=== PATIENT | male | born 1945 | race Two or more races ===

== ENCOUNTER 2017-09-17 04:51 | Emergency (ER) | payer OTHER ==
[~2017-09-17] VITALS: Ht 177.8 cm; Wt 68.0 kg
[~2017-09-17 04:51] MED LIST: IRON SUPPLEMENT1 TAB PO; KETO10TA2 PO; LOTRISONE CREAM45 GM TP; MIRALAX12 EA PO; ORPH100T PO; POLY119PG PO; SURFAK240 M1 PO; ULTRACET PO; ULTRAM50 MG PO
[2017-09-17] MEDS ORDERED: LISINOPRIL-HCT1 EAC2 (05:08)
[2017-09-17] MEDS ORDERED: DOLOGESIC 500-1 EACH PO (08:17)
[2017-09-17] MEDS ORDERED: LEVSIN/SL0.125 MG SL (08:17)
== END 2017-09-17 08:41 | disposition home or self-care (01) ==
LOC: ER 04:51
DX: M54.2 Cervicalgia (principal); R10.32 Left lower quadrant pain; R10.31 Right lower quadrant pain

== ENCOUNTER 2017-12-27 10:04 | Outpatient (CLI) | payer OTHER ==
[~2017-12-27 10:04] MED LIST changes: +DOLOGESIC 500-1 EACH PO; +LEVSIN/SL0.125 MG SL; +LISINOPRIL-HCT1 EAC2
== END 2017-12-27 11:00 | disposition home or self-care (01) ==
LOC: NUCLEAR 10:04
DX: I20.1 Angina pectoris with documented spasm (principal)

== ENCOUNTER 2018-02-07 09:57 | Outpatient (CLI) | payer OTHER | END 2018-02-07 10:30 | disposition home or self-care (01) | LOC: NUCLEAR 09:57 | DX: I20.1 Angina pectoris with documented spasm (principal) | CPT/HCPCS: 78452; 93017; A9500 ==

== ENCOUNTER 2018-03-12 12:50 | Emergency (ER) | payer OTHER ==
[~2018-03-12] VITALS: Ht 175.3 cm; Wt 69.4 kg
== END 2018-03-12 14:23 | disposition home or self-care (01) ==
LOC: ER 12:50
DX: M54.2 Cervicalgia (principal)

== ENCOUNTER 2018-03-15 06:25 | Emergency (ER) | payer OTHER ==
[~2018-03-15] VITALS: Ht 175.3 cm; Wt 69.4 kg
== END 2018-03-15 11:10 | disposition home or self-care (01) ==
LOC: ER 06:25
DX: M54.2 Cervicalgia (principal)

== ENCOUNTER 2018-03-24 18:04 | Emergency (ER) | payer OTHER ==
[~2018-03-24] VITALS: Ht 175.3 cm; Wt 69.4 kg
== END 2018-03-24 21:29 | disposition home or self-care (01) ==
LOC: ER 18:04
DX: I10 Essential (primary) hypertension (principal); R51 Headache

== ENCOUNTER 2018-03-25 16:43 | Emergency (ER) | payer OTHER ==
[~2018-03-25] VITALS: Ht 175.3 cm; Wt 69.4 kg
== END 2018-03-25 21:19 | disposition home or self-care (01) ==
LOC: ER 16:43
DX: K29.60 Other gastritis without bleeding (principal); R51 Headache

== ENCOUNTER 2018-05-23 23:34 | Emergency (ER) | payer OTHER ==
[~2018-05-23] VITALS: Ht 175.3 cm; Wt 68.0 kg
== END 2018-05-24 14:47 | disposition home or self-care (01) ==
LOC: ER 23:34 → CPU-OBS 23:37 → ER 23:37
DX: I48.92 Unspecified atrial flutter (principal); I16.0 Hypertensive urgency; I10 Essential (primary) hypertension; R07.89 Other chest pain; M54.2 Cervicalgia; M62.838 Other muscle spasm

== ENCOUNTER 2018-05-28 00:55 | Emergency (ER) | payer OTHER ==
[~2018-05-28] VITALS: Ht 175.3 cm; Wt 68.0 kg
[2018-05-28] MEDS ORDERED: ASPIRIN EC81 MG (01:20)
[2018-05-28] MEDS ORDERED: ZANTAC 7575 MG (01:21)
[2018-05-28] MEDS ORDERED: KETO10TA2 PO (02:41)
[2018-05-28] MEDS ORDERED: SKELAXIN800 MG PO (02:41)
== END 2018-05-28 14:21 | disposition home or self-care (01) ==
LOC: ER 00:55
DX: M54.2 Cervicalgia (principal); M62.838 Other muscle spasm

== ENCOUNTER 2018-06-01 20:23 | Emergency (ER) | payer OTHER ==
[~2018-06-01] VITALS: Ht 175.3 cm; Wt 68.0 kg
[~2018-06-01 20:23] MED LIST changes: +ASPIRIN EC81 MG; +SKELAXIN800 MG PO; +ZANTAC 7575 MG
== END 2018-06-01 22:41 | disposition home or self-care (01) ==
LOC: ER 20:23
DX: K29.70 Gastritis, unspecified, without bleeding (principal)

== ENCOUNTER 2018-06-14 18:31 | Emergency (ER) | payer OTHER ==
[~2018-06-14] VITALS: Ht 162.6 cm; Wt 68.0 kg
[2018-06-14] MEDS ORDERED: PROTONIX40 MG (18:50)
[2018-06-14] MEDS ORDERED: PNEU16DI2 (18:51)
[2018-06-14] MEDS ORDERED: TOPROL XL25 MG (18:51)
== END 2018-06-15 13:22 | disposition home or self-care (01) ==
LOC: ER 18:31 → CPU-OBS 18:33 → ER 06-15 13:22
DX: R07.89 Other chest pain (principal); R10.13 Epigastric pain; R20.8 Other disturbances of skin sensation; R00.1 Bradycardia, unspecified; I16.0 Hypertensive urgency; I10 Essential (primary) hypertension

== ENCOUNTER 2018-07-16 06:53 | Emergency (ER) | payer OTHER ==
[~2018-07-16] VITALS: Ht 175.3 cm; Wt 68.0 kg
[~2018-07-16 06:53] MED LIST changes: +PNEU16DI2; +PROTONIX40 MG; +TOPROL XL25 MG
[2018-07-16] MEDS ORDERED: LISINOPRIL10 MG PO (07:28)
== END 2018-07-16 11:35 | disposition home or self-care (01) ==
LOC: ER 06:53
DX: I16.0 Hypertensive urgency (principal); I10 Essential (primary) hypertension

== ENCOUNTER → 2019-07-16 | Outpatient (CLI) | payer OTHER ==
[~2019-07-16] MED LIST changes: +LISINOPRIL10 MG PO
== END | disposition home or self-care (01) ==
LOC: TOM 09:15
DX: C61 Malignant neoplasm of prostate (principal)
CPT/HCPCS: 74178; Q9965

== ENCOUNTER 2019-07-29 07:56 | Outpatient (CLI) | payer OTHER | END 2019-07-29 08:07 | disposition home or self-care (01) | LOC: NUCLEAR 07:56 | DX: C61 Malignant neoplasm of prostate (principal) | CPT/HCPCS: 78306; 78320; A9503 ==

== ENCOUNTER 2019-11-04 08:40 | Emergency (ER) | payer OTHER ==
[~2019-11-04] VITALS: Ht 177.8 cm; Wt 68.0 kg
[2019-11-04] MEDS ORDERED: PEPCID AC20 MG (09:32)
== END 2019-11-04 12:36 | disposition home or self-care (01) ==
LOC: ER 08:40 → CPU-OBS 09:02 → ER 12:36
DX: R07.89 Other chest pain (principal); R55 Syncope and collapse

== ENCOUNTER 2020-05-14 14:52 | Emergency (ER) | payer OTHER ==
[~2020-05-14] VITALS: Ht 177.8 cm; Wt 64.0 kg
[~2020-05-14 14:52] MED LIST changes: +PEPCID AC20 MG
[2020-05-14] MEDS ORDERED: LIPITOR40 M1 (15:14)
[2020-05-14] MEDS ORDERED: COZAAR100 MG (15:14)
[2020-05-14] MEDS ORDERED: IRON325 MG (15:15)
== END 2020-05-14 18:52 | disposition home or self-care (01) ==
LOC: ER 14:52
DX: R42 Dizziness and giddiness (principal)

== ENCOUNTER 2020-12-28 01:43 | Emergency (ER) | payer OTHER ==
[~2020-12-28] VITALS: Ht 177.8 cm; Wt 68.0 kg
[~2020-12-28 01:43] MED LIST changes: +COZAAR100 MG; +IRON325 MG; +LIPITOR40 M1
[2020-12-28] MEDS ORDERED: RAYOS5 MG PO (01:59)
[2020-12-28] MEDS ORDERED: PANTOPRAZOLE SO40 MG PO (02:00)
[2020-12-28] MEDS ORDERED: ELIQUIS5 MG PO (02:00)
[2020-12-28] MEDS ORDERED: TAMSULOSIN HCL0.4 MG PO (02:00)
== END 2020-12-28 04:59 | disposition home or self-care (01) ==
LOC: ER 01:43
DX: I16.0 Hypertensive urgency (principal); I10 Essential (primary) hypertension

== ENCOUNTER 2021-04-18 07:48 | Emergency (ER) | payer OTHER ==
[~2021-04-18] VITALS: Ht 177.8 cm; Wt 68.0 kg
[~2021-04-18 07:48] MED LIST changes: +ELIQUIS5 MG PO; +PANTOPRAZOLE SO40 MG PO; +RAYOS5 MG PO; +TAMSULOSIN HCL0.4 MG PO
== END 2021-04-18 18:57 | disposition home or self-care (01) ==
LOC: ER 07:48 → CPU-OBS 07:50 → ER 07:50
DX: R07.89 Other chest pain (principal); Z11.52 Encounter for screening for COVID-19

== ENCOUNTER 2021-05-17 10:30 | Outpatient (CLI) | payer OTHER | END 2021-05-17 10:45 | disposition home or self-care (01) | LOC: PPH VACUNA 10:30 | PROVIDERS: ATTEND Emergency Medicine Pediatric Emergency Medicine | DX: Z23 Encounter for immunization (principal) ==

== ENCOUNTER → 2021-06-07 | Outpatient (CLI) | payer OTHER | END | disposition home or self-care (01) | LOC: PPH VACUNA 07:00 | PROVIDERS: ATTEND Emergency Medicine Pediatric Emergency Medicine | DX: Z23 Encounter for immunization (principal) ==

== ENCOUNTER 2021-12-06 08:15 | Outpatient (CLI) | payer OTHER | END 2021-12-06 08:30 | disposition home or self-care (01) | LOC: PPH VACUNA 08:15 | PROVIDERS: ATTEND Emergency Medicine Pediatric Emergency Medicine | DX: Z23 Encounter for immunization (principal) ==

== ENCOUNTER 2022-06-03 12:41 | Emergency (ER) | payer OTHER ==
[~2022-06-03] VITALS: Ht 175.3 cm; Wt 65.8 kg
[2022-06-03] MEDS ORDERED: ELIQUIS2.5 MG (12:59)
[2022-06-03] MEDS ORDERED: PROTONIX40 MG (12:59)
[2022-06-03] MEDS ORDERED: FOLIC ACID1 MG (13:00)
[2022-06-03] MEDS ORDERED: PEPCID AC20 MG (13:00)
== END 2022-06-03 14:58 ==
LOC: ER 12:41
DX: J06.9 Acute upper respiratory infection, unspecified (principal); I10 Essential (primary) hypertension; Z85.46 Personal history of malignant neoplasm of prostate

== ENCOUNTER 2022-06-18 07:59 | Emergency (ER) | payer OTHER ==
[~2022-06-18] VITALS: Ht 175.3 cm; Wt 68.0 kg
[~2022-06-18 07:59] MED LIST changes: +ELIQUIS2.5 MG; +FOLIC ACID1 MG
== END 2022-06-18 11:36 | disposition home or self-care (01) ==
LOC: ER 07:59
DX: S09.90XA Unspecified injury of head, initial encounter (principal); W18.30XA Fall on same level, unspecified, initial encounter; Y93.9 Activity, unspecified; Y92.019 Unspecified place in single-family (private) house as the place of occurrence of the external cause; S19.9XXA Unspecified injury of neck, initial encounter; I10 Essential (primary) hypertension

== ENCOUNTER 2022-11-13 06:25 | Emergency (ER) | payer OTHER ==
[~2022-11-13] VITALS: Ht 177.8 cm; Wt 68.0 kg
== END 2022-11-13 09:53 | disposition home or self-care (01) ==
LOC: ER 06:25
DX: I10 Essential (primary) hypertension (principal); Z85.46 Personal history of malignant neoplasm of prostate; K29.70 Gastritis, unspecified, without bleeding

== ENCOUNTER 2023-01-01 08:38 | Emergency (ER) | payer OTHER ==
[~2023-01-01] VITALS: Ht 177.8 cm; Wt 68.0 kg
== END 2023-01-01 16:36 | disposition home or self-care (01) ==
LOC: ER 08:38
DX: K59.00 Constipation, unspecified (principal); I10 Essential (primary) hypertension; I49.8 Other specified cardiac arrhythmias

== ENCOUNTER 2023-03-02 08:48 | Emergency (ER) | payer OTHER ==
[~2023-03-02] VITALS: Ht 177.8 cm; Wt 68.0 kg
== END 2023-03-02 10:31 | disposition home or self-care (01) ==
LOC: ER 08:48
DX: M75.52 Bursitis of left shoulder (principal); M75.90 Shoulder lesion, unspecified, unspecified shoulder

== ENCOUNTER 2023-03-07 17:46 | Emergency (ER) | payer OTHER ==
[~2023-03-07] VITALS: Ht 177.8 cm; Wt 68.0 kg
== END 2023-03-07 22:07 | disposition home or self-care (01) ==
LOC: ER 17:46
DX: R31.9 Hematuria, unspecified (principal); I10 Essential (primary) hypertension; K29.70 Gastritis, unspecified, without bleeding

== ENCOUNTER 2023-06-29 06:37 | Emergency (ER) | payer OTHER ==
[~2023-06-29] VITALS: Ht 177.8 cm; Wt 68.0 kg
[2023-06-29] MEDS ORDERED: METOPROLOL SUC100 MG (07:03)
[2023-06-29] MEDS ORDERED: TAMSULOSIN HCL0.4 MG (07:04)
[2023-06-29 09:16] LABS: HEMATOCRIT 33.6 % (39.0-48.0); HEMOGLOBIN 10.9 g/dL (13-16.00); MEAN CELL VOLUME 71.6 fL (80.0-100.00); MEAN CORPUSCULAR HEMOGLOBIN 23.2 pg (27.00-32.0); MEAN CORPUSCULAR HGB CONC 32.3 g/dl (32.0-36.0); PLATELET COUNT 162 K/uL (150-450); RED BLOOD COUNT 4.69 M/uL (4.00-6.00); RED CELL DISTRIBUTION WIDTH 16.2 % (11.5-14.5)
[2023-06-29 09:49] LABS: ALBUMIN 3.4 gm/dL (3.4-5.0); BILIRUBIN TOTAL 0.57 mg/dL (0.3-1.2); CALCIUM 8.7 mg/dL (8.5-10.1); GFR 72.08; GLOBULINA 3.7 G/DL (2.4-3.5); TOTAL PROTEIN 7.1 gm/dL (6.4-8.2)
[2023-06-29 09:50] LABS: POTASSIUM 4.03 mEq/L (3.5-5.1)
== END 2023-06-29 11:32 | disposition home or self-care (01) ==
LOC: ER 06:37
PROVIDERS: Emergency Medicine
DX: K29.70 Gastritis, unspecified, without bleeding (principal); I10 Essential (primary) hypertension; Z85.46 Personal history of malignant neoplasm of prostate
CPT/HCPCS: 36415; 96365; 99284; J3490

== ENCOUNTER 2023-09-26 05:22 | Emergency (ER) | payer OTHER ==
[~2023-09-26] VITALS: Ht 177.8 cm; Wt 68.0 kg
[~2023-09-26 05:22] MED LIST changes: +METOPROLOL SUC100 MG; +TAMSULOSIN HCL0.4 MG
== END 2023-09-26 10:54 | disposition home or self-care (01) ==
LOC: ER 05:24
DX: M54.2 Cervicalgia (principal); I10 Essential (primary) hypertension; M62.838 Other muscle spasm
CPT/HCPCS: 96372; 99282; J1100; J2360

== ENCOUNTER 2023-10-01 04:49 | Emergency (ER) | payer OTHER ==
[~2023-10-01] VITALS: Ht 177.8 cm; Wt 68.0 kg
[2023-10-01] MEDS ORDERED: DOLOGESIC-DF 51 EACH PO (07:39)
== END 2023-10-01 07:45 | disposition home or self-care (01) ==
LOC: ER 04:49
DX: M54.2 Cervicalgia (principal); I10 Essential (primary) hypertension; M62.830 Muscle spasm of back
CPT/HCPCS: 72040; 96372; 99283; J1885; J2360

== ENCOUNTER 2023-11-19 17:47 | Emergency (ER) | payer OTHER ==
[~2023-11-19] VITALS: Ht 177.8 cm; Wt 83.9 kg
[~2023-11-19 17:47] MED LIST changes: +DOLOGESIC-DF 51 EACH PO
[2023-11-19] MEDS ORDERED: ELVITEG/COB/EMTRI/TENOFO DISOP 1 UDTAB TABLET PO ONE (18:45)
[2023-11-19] MEDS ORDERED: LABETALOL HCL 200 MG/40 ML VIAL IV ONE (18:45)
[2023-11-19 19:20] LABS: HEMATOCRIT 32.3 % (39.0-48.0); HEMOGLOBIN 10.9 g/dL (13-16.00); MEAN CELL VOLUME 71.8 fL (80.0-100.00); MEAN CORPUSCULAR HEMOGLOBIN 24.3 pg (27.00-32.0); MEAN CORPUSCULAR HGB CONC 33.9 g/dl (32.0-36.0); PLATELET COUNT 151 K/uL (150-450); RED CELL DISTRIBUTION WIDTH 15.6 % (11.5-14.5)
[2023-11-19] MEDS ORDERED: LABETALOL HCL 100 MG/20 ML ML IV ONE (19:30)
[2023-11-19 19:46] LABS: ALBUMIN 3.6 gm/dL (3.4-5.0); BILIRUBIN TOTAL 0.72 mg/dL (0.3-1.2); CALCIUM 9.2 mg/dL (8.5-10.1); CREATININE SERUM 0.93 mg/dL (0.70-1.30); GFR 78.38; GLOBULINA 3.3 G/DL (2.4-3.5); POTASSIUM 3.87 mEq/L (3.5-5.1); TOTAL PROTEIN 6.9 gm/dL (6.4-8.2)
== END 2023-11-19 20:55 | disposition home or self-care (01) ==
LOC: ER 17:47
PROVIDERS: General Practice
DX: I10 Essential (primary) hypertension (principal)

== ENCOUNTER 2023-11-21 | Emergency (ER) | payer OTHER ==
[~2023-11-21] VITALS: Ht 177.8 cm; Wt 68.0 kg
[2023-11-21] MEDS ORDERED: NIFEDIPINE 10 MG CAPSULE PO STA (02:57)
[2023-11-21] MEDS ORDERED: 0.9 % SODIUM CHLORIDE 1,000 ML IV ONE (06:30)
[2023-11-21 06:51] LABS: HEMATOCRIT 32.3 % (39.0-48.0); HEMOGLOBIN 10.6 g/dL (13-16.00); MEAN CELL VOLUME 72.5 fL (80.0-100.00); MEAN CORPUSCULAR HEMOGLOBIN 23.8 pg (27.00-32.0); MEAN CORPUSCULAR HGB CONC 32.8 g/dl (32.0-36.0); PLATELET COUNT 165 K/uL (150-450); RED BLOOD COUNT 4.46 M/uL (4.00-6.00); RED CELL DISTRIBUTION WIDTH 15.8 % (11.5-14.5)
[2023-11-21 07:06] LABS: ALBUMIN 3.6 gm/dL (3.4-5.0); BILIRUBIN TOTAL 0.73 mg/dL (0.3-1.2); CALCIUM 9.1 mg/dL (8.5-10.1); CREATININE SERUM 1.07 mg/dL (0.70-1.30); GFR 66.67; GLOBULINA 3.3 G/DL (2.4-3.5); POTASSIUM 3.42 mEq/L (3.5-5.1); TOTAL PROTEIN 6.9 gm/dL (6.4-8.2)
== END 2023-11-21 05:06 ==
LOC: ER
PROVIDERS: General Practice
DX: I16.0 Hypertensive urgency (principal)
CPT/HCPCS: 36415; 93005; 96365; 96366; 99283; J7030

== ENCOUNTER 2024-03-07 23:08 | Inpatient (IN) | payer OTHER ==
[~2024-03-07] VITALS: Ht 152.4 cm; Wt 72.6 kg
[2024-03-07] MEDS ORDERED: FAMOTIDINE20 MG PO (23:23)
--- NOTE | 2024-03-07 23:23 | NUR ---
SE RECIBE PTE ALERTA Y ORIENTADO X3 CUAL REFIERE PRESENTA DOLOR SHEELA DE DOLOR ABDOMINAL, PRESENTA NAUSEAS Y VOMITOS DESDE EL MEDIO [place]. SE KOBE S/V Y SE UBICA.
[2024-03-07] MEDS ORDERED: MORPHINE SULFATE 4 MG/ML VIAL IV ONE (23:45)
[2024-03-08] MEDS ORDERED: 0.9 % SODIUM CHLORIDE 1,000 ML IV STA (00:13)
[2024-03-08] MEDS ORDERED: HYOSCYAMINE SULFATE 0.125 MG TAB.SUBL SL STA (00:13)
[2024-03-08] MEDS ORDERED: ONDANSETRON HCL 2 MG/ML VIAL IV STA (00:13)
[2024-03-08] MEDS ORDERED: FAMOtidine 10 MG/ML (4ML VIAL) IV PUSH STA (00:14)
--- NOTE | 2024-03-08 00:43 | NUR ---
MASCULINO EVALUADO POR DR BEE. LORE JIMENEZ ORIENTA A PTE SOBRE ORDENES MEDICAS. SE COLECTAN MUESTRAS DE LABORATORIO BAJO MEDIDAS ASEPTICAS. SE CANALIZA A PTE Y SE ADMINISTRAN MEDICAMENTOS LALITO ORDEN MEDICA. PENDIENTE REALIZAR CT/PO.
[2024-03-08 01:53] LABS: INR 1.1; PARTIAL THROMBOPLASTIN TIME 28.8 SECONDS (22.0-34.0); PROTHROMBIN TIME 11.5 SECONDS (9.0-11.5)
[2024-03-08 01:54] LABS: HEMATOCRIT 32.3 % (39.0-48.0); HEMOGLOBIN 10.6 g/dL (13-16.00); MEAN CELL VOLUME 72.1 fL (80.0-100.00); MEAN CORPUSCULAR HEMOGLOBIN 23.7 pg (27.00-32.0); MEAN CORPUSCULAR HGB CONC 32.9 g/dl (32.0-36.0); PLATELET COUNT 165 K/uL (150-450); RED BLOOD COUNT 4.48 M/uL (4.00-6.00); RED CELL DISTRIBUTION WIDTH 15.7 % (11.5-14.5)
[2024-03-08 02:01] LABS: BILIRUBIN TOTAL 0.53 mg/dL (0.3-1.2); CALCIUM 8.9 mg/dL (8.5-10.1); CREATININE SERUM 1.13 mg/dL (0.70-1.30); GFR 62.6; GLOBULINA 3.6 G/DL (2.4-3.5); POTASSIUM 3.52 mEq/L (3.5-5.1); TOTAL PROTEIN 7.6 gm/dL (6.4-8.2)
--- NOTE | 2024-03-08 03:19 | NUR ---
SE INSERTA TUBO NASOGASTRICO #16 EN FOSA NASAL DERECHA Y SE CONECTA A SUCCION INTERMITENTE.
[2024-03-08] MEDS ORDERED: MEPERIDINE HCL/PF 50 MG/ML VIAL IM STA (06:21)
[2024-03-08] MEDS ORDERED: PROMETHAZINE HCL 50 MG/ML AMPUL IM STA (06:21)
[2024-03-08] MEDS ORDERED: ENALAPRILAT DIHYDRATE 1.25 MG/ML VIAL IV PRN (09:15)
[2024-03-08] MEDS ORDERED: ONDANSETRON HCL 2 MG/ML VIAL IV PRN (09:15)
[2024-03-08] MEDS ORDERED: PIPERACILLIN/TAZOBACTAM SODIUM 3.375 GM VIAL IV SCH (12:00)
[2024-03-08] MEDS ORDERED: ENOXAPARIN SODIUM 60 MG/0.6 ML SYRINGE SUBCUTANEO SCH (21:00)
[2024-03-09] MEDS ORDERED: DIATRIZOATE MEGLUMINE, SODIUM 30 ML BOTTLE PO ONE (17:00)
[2024-03-09] MEDS ORDERED: ACETAMINOPHEN 500 MG GEL..CAP PO ONE (21:30)
[2024-03-10] MEDS ORDERED: MORPHINE SULFATE 2 MG/ML CARTRIDGE IV PRN (12:30)
[2024-03-10] MEDS ORDERED: DILTIAZEM HCL 125MG/25ML VIAL IV ONE (20:15)
[2024-03-10 20:55] LABS: ABG PH 7.323 (7.35-7.45); ABG PO2 460.7 mmHg (80-100); ABG pCO2 42.5 mmHg (35-45); BASE EXCESS -4.3 mmol/l; BICARBONATE 21.6 mmol/l (23-25); Tco2 22.9 mmol/l; allen test SATISFACTORY; puncture site RADIAL RIGHT
[2024-03-10 20:56] LABS: o2 60 %
[2024-03-11 06:48] LABS: HEMATOCRIT 37.3 % (39.0-48.0); HEMOGLOBIN 12.3 g/dL (13-16.00); MEAN CELL VOLUME 71.6 fL (80.0-100.00); MEAN CORPUSCULAR HEMOGLOBIN 23.7 pg (27.00-32.0); MEAN CORPUSCULAR HGB CONC 33.1 g/dl (32.0-36.0); PLATELET COUNT 147 K/uL (150-450); RED BLOOD COUNT 5.21 M/uL (4.00-6.00); RED CELL DISTRIBUTION WIDTH 16.3 % (11.5-14.5)
[2024-03-11 07:07] LABS: ALBUMIN 2.7 gm/dL (3.4-5.0); BILIRUBIN TOTAL 1.05 mg/dL (0.3-1.2); CALCIUM 8.3 mg/dL (8.5-10.1); CREATININE SERUM 1.74 mg/dL (0.70-1.30); GFR 38.04; GLOBULINA 2.8 G/DL (2.4-3.5); POTASSIUM 3.87 mEq/L (3.5-5.1); TOTAL PROTEIN 5.5 gm/dL (6.4-8.2)
[2024-03-11] MEDS ORDERED: ENOXAPARIN SODIUM 30 MG/0.3 ML SYRINGE SUBCUTANEO SCH (17:00)
[2024-03-11] MEDS ORDERED: PIPERACILLIN/TAZOBACTAM SODIUM 2.25 GM VIAL IV SCH (18:00)
[2024-03-12] MEDS ORDERED: DILTIAZEM HCL 125 MG in 0.9 % SODIUM CHLORIDE 100 ML IV SCH (07:45)
[2024-03-12] MEDS ORDERED: CHLORHEXIDINE GLUCONATE 120 ML BOTTLE TOP ONE (08:32)
[2024-03-12 09:08] LABS: hav igm Negative (Negative); hcv Non Reactive (Non Reactive); hep b c Negative (Negative)
[2024-03-12] MEDS ORDERED: 0.9 % SODIUM CHLORIDE 1,000 ML IV SCH (17:00)
[2024-03-12] MEDS ORDERED: AMINO ACIDS 4.25 %/DEXTROSE 5% 1,000 ML PERIFERAL SCH (17:00)
[2024-03-12] MEDS ORDERED: MULTIVIT INFUSN,ADULT 4,VIT K 10 ML VIAL IV SCH (17:00)
[2024-03-13 07:13] LABS: ALBUMIN 2.1 gm/dL (3.4-5.0); BILIRUBIN TOTAL 0.92 mg/dL (0.3-1.2); CALCIUM 8.5 mg/dL (8.5-10.1); CREATININE SERUM 0.88 mg/dL (0.70-1.30); GFR 83.54; GLOBULINA 3.2 G/DL (2.4-3.5); TOTAL PROTEIN 5.3 gm/dL (6.4-8.2)
[2024-03-13 07:17] LABS: POTASSIUM 3.83 mEq/L (3.5-5.1)
[2024-03-13 14:53] LABS: HEMATOCRIT 31.8 % (39.0-48.0); HEMOGLOBIN 10.4 g/dL (13-16.00); MEAN CELL VOLUME 71.9 fL (80.0-100.00); MEAN CORPUSCULAR HEMOGLOBIN 23.6 pg (27.00-32.0); MEAN CORPUSCULAR HGB CONC 32.8 g/dl (32.0-36.0); PLATELET COUNT 162 K/uL (150-450); RED BLOOD COUNT 4.42 M/uL (4.00-6.00); RED CELL DISTRIBUTION WIDTH 15.9 % (11.5-14.5)
[2024-03-13] MEDS ORDERED: ENOXAPARIN SODIUM 40 MG/0.4 ML SYRINGE SUBCUTANEO SCH (17:00)
[2024-03-14] MEDS ORDERED: PIPERACILLIN/TAZOBACTAM SODIUM 3.375 GM VIAL IV SCH
[2024-03-14] MEDS ORDERED: CLOTRIMAZOLE 10 MG TROCHE MM SCH (17:00)
[2024-03-16 07:33] LABS: HEMATOCRIT 30.1 % (39.0-48.0); HEMOGLOBIN 10.1 g/dL (13-16.00); MEAN CELL VOLUME 71.6 fL (80.0-100.00); MEAN CORPUSCULAR HEMOGLOBIN 23.9 pg (27.00-32.0); MEAN CORPUSCULAR HGB CONC 33.4 g/dl (32.0-36.0); PLATELET COUNT 146 K/uL (150-450); RED BLOOD COUNT 4.21 M/uL (4.00-6.00); RED CELL DISTRIBUTION WIDTH 15.9 % (11.5-14.5)
[2024-03-16 07:49] LABS: CALCIUM 7.8 mg/dL (8.5-10.1); CREATININE SERUM 0.74 mg/dL (0.70-1.30); GFR 102.03
[2024-03-16 08:31] LABS: POTASSIUM 2.52 mEq/L (3.5-5.1)
[2024-03-16] MEDS ORDERED: MAGNESIUM SULFATE IN WATER 2 GM/50 ML PIGGYBAG IV NR (09:15)
[2024-03-16] MEDS ORDERED: DILTIAZEM HCL 25 MG/5 ML VIAL IV ONE (11:06)
[2024-03-16] MEDS ORDERED: AMIODARONE IN DEXTROSE,ISO-OSM 360 MG/200 ML IV.SOLN IV ONE (11:08)
[2024-03-16] MEDS ORDERED: DILTIAZEM HCL 25 MG/5 ML VIAL IV STA (11:12)
[2024-03-16] MEDS ORDERED: POTASSIUM CHLORIDE IN WATER 40 MEQ/100 ML PIGGYBAG IV SCH (12:00)
[2024-03-17 06:18] LABS: HEMATOCRIT 27.4 % (39.0-48.0); HEMOGLOBIN 9.2 g/dL (13-16.00); MEAN CORPUSCULAR HEMOGLOBIN 23.4 pg (27.00-32.0); MEAN CORPUSCULAR HGB CONC 33.6 g/dl (32.0-36.0); PLATELET COUNT 165 K/uL (150-450); RED BLOOD COUNT 3.94 M/uL (4.00-6.00); RED CELL DISTRIBUTION WIDTH 16.1 % (11.5-14.5)
[2024-03-17 06:32] LABS: MEAN CELL VOLUME 69.5 fL (80.0-100.00)
[2024-03-17 06:44] LABS: INR 1.04; PARTIAL THROMBOPLASTIN TIME 35.5 SECONDS (22.0-34.0); PROTHROMBIN TIME 10.9 SECONDS (9.0-11.5)
[2024-03-17 06:55] LABS: ALBUMIN 1.8 gm/dL (3.4-5.0); BILIRUBIN TOTAL 0.68 mg/dL (0.3-1.2); BILIRUBIN,CONJUGATED 0.5 mg/dL (0.0-0.2); BILIRUBIN,UNCONJUGATED 0.18 mg/dL (0.0-0.6); CALCIUM 7.9 mg/dL (8.5-10.1); CREATININE SERUM 0.79 mg/dL (0.70-1.30); GFR 94.61; MAGNESIUM 1.9 mg/dL (1.8-2.4); POTASSIUM 3.55 mEq/L (3.5-5.1); TOTAL PROTEIN 4.8 gm/dL (6.4-8.2)
[2024-03-17 07:03] LABS: PHOSPHOROUS 1.8 mg/dL (2.5-4.9)
[2024-03-17 10:43] LABS: UREA CLEARANCE 35.7 ML/MIN
[2024-03-17] MEDS ORDERED: LOPERAMIDE HCL 2 MG CAPSULE PO PRN (14:00)
[2024-03-17] MEDS ORDERED: AA 5 %/CALCIUM/LYTES/DEXT 20 % 2,000 ML CENTRAL SCH (17:00)
[2024-03-18] MEDS ORDERED: AMIODARONE HCL 200 MG TABLET PO SCH (09:00)
[2024-03-19 08:04] LABS: HEMATOCRIT 27.1 % (39.0-48.0); HEMOGLOBIN 9.2 g/dL (13-16.00); MEAN CELL VOLUME 71.2 fL (80.0-100.00); MEAN CORPUSCULAR HEMOGLOBIN 24.2 pg (27.00-32.0); MEAN CORPUSCULAR HGB CONC 33.9 g/dl (32.0-36.0); PLATELET COUNT 199 K/uL (150-450); RED CELL DISTRIBUTION WIDTH 16.1 % (11.5-14.5)
[2024-03-19 08:29] LABS: ALBUMIN 1.8 gm/dL (3.4-5.0); BILIRUBIN TOTAL 0.83 mg/dL (0.3-1.2); CALCIUM 8.3 mg/dL (8.5-10.1); CREATININE SERUM 0.73 mg/dL (0.70-1.30); GFR 103.64; POTASSIUM 3.37 mEq/L (3.5-5.1); TOTAL PROTEIN 4.8 gm/dL (6.4-8.2)
[2024-03-19] MEDS ORDERED: LOSARTAN POTASSIUM 50 MG TABLET PO SCH (12:00)
[2024-03-22 05:12] LABS: HEMATOCRIT 23.8 % (39.0-48.0); MEAN CELL VOLUME 71.4 fL (80.0-100.00); MEAN CORPUSCULAR HGB CONC 33.8 g/dl (32.0-36.0); PLATELET COUNT 283 K/uL (150-450); RED BLOOD COUNT 3.33 M/uL (4.00-6.00); RED CELL DISTRIBUTION WIDTH 16.4 % (11.5-14.5)
[2024-03-22 07:44] LABS: CALCIUM 8.1 mg/dL (8.5-10.1); CREATININE SERUM 0.73 mg/dL (0.70-1.30); GFR 103.64; POTASSIUM 3.3 mEq/L (3.5-5.1)
[2024-03-22] MEDS ORDERED: POTASSIUM CHLORIDE IN WATER 100 ML IV SCH (13:00)
[2024-03-23 08:28] LABS: HEMATOCRIT 28.7 % (39.0-48.0); HEMOGLOBIN 9.7 g/dL (13-16.00); MEAN CELL VOLUME 73.7 fL (80.0-100.00); MEAN CORPUSCULAR HEMOGLOBIN 24.9 pg (27.00-32.0); MEAN CORPUSCULAR HGB CONC 33.7 g/dl (32.0-36.0); PLATELET COUNT 293 K/uL (150-450); RED BLOOD COUNT 3.89 M/uL (4.00-6.00); RED CELL DISTRIBUTION WIDTH 17.8 % (11.5-14.5)
[2024-03-23 09:00] LABS: CALCIUM 7.7 mg/dL (8.5-10.1); CREATININE SERUM 0.72 mg/dL (0.70-1.30); GFR 105.31; POTASSIUM 3.38 mEq/L (3.5-5.1)
[2024-03-23] MEDS ORDERED: POTASSIUM CHLORIDE IN WATER 100 ML IV NR (11:15)
[2024-03-23] MEDS ORDERED: MEROPENEM 500 MG/VIAL VIAL IV SCH (18:56)
[2024-03-24 07:01] LABS: CALCIUM 7.7 mg/dL (8.5-10.1); CREATININE SERUM 0.66 mg/dL (0.70-1.30); GFR 116.43; POTASSIUM 3.95 mEq/L (3.5-5.1)
[2024-03-24] MEDS ORDERED: GABAPENTIN 300 MG CAPSULE PO SCH (21:36)
== END 2024-03-27 13:00 | disposition home or self-care (01) | DRG 329 ==
LOC: ER 23:09 → MEDJ 03-08 09:25 → MEDI 03-08 09:25 → MEDJ 03-08 09:48 → ICU 03-10 21:19 → MEDI 03-18 12:01
PROVIDERS: Anesthesiology Pain Medicine; Internal Medicine; Student in an Organized Health Care Education/Training Program; Surgery; ADMIT Internal Medicine; ATTEND Internal Medicine
PROC: 0D9670Z Drainage of Stomach with Drainage Device, Via Natural or Artificial Opening (ICD-10-PCS; 2024-03-08)
PROC: BW21ZZZ Computerized Tomography (CT Scan) of Abdomen and Pelvis (ICD-10-PCS; 2024-03-08)
PROC: BW21YZZ Computerized Tomography (CT Scan) of Abdomen and Pelvis using Other Contrast (ICD-10-PCS; 2024-03-09)
PROC: 0DTF0ZZ Resection of Right Large Intestine, Open Approach (ICD-10-PCS; 2024-03-10)
PROC: 0DB80ZZ Excision of Small Intestine, Open Approach (ICD-10-PCS; principal; 2024-03-10 16:00)
PROC: 5A0945A Assistance with Respiratory Ventilation, 24-96 Consecutive Hours, High Flow/Velocity Cannula (ICD-10-PCS; 2024-03-11)
PROC: 02HV33Z Insertion of Infusion Device into Superior Vena Cava, Percutaneous Approach (ICD-10-PCS; 2024-03-13)
PROC: 3E0436Z Introduction of Nutritional Substance into Central Vein, Percutaneous Approach (ICD-10-PCS; 2024-03-13)
PROC: 0T9B70Z Drainage of Bladder with Drainage Device, Via Natural or Artificial Opening (ICD-10-PCS; 2024-03-13)
PROC: 4A12X4Z Monitoring of Cardiac Electrical Activity, External Approach (ICD-10-PCS; 2024-03-18)
PROC: 30233N1 Transfusion of Nonautologous Red Blood Cells into Peripheral Vein, Percutaneous Approach (ICD-10-PCS; 2024-03-23)
DX: K56.600 Partial intestinal obstruction, unspecified as to cause (principal); J69.0 Pneumonitis due to inhalation of food and vomit; K55.029 Acute infarction of small intestine, extent unspecified; I48.92 Unspecified atrial flutter; T81.49XA Infection following a procedure, other surgical site, initial encounter; B37.89 Other sites of candidiasis; K91.89 Other postprocedural complications and disorders of digestive system; K56.0 Paralytic ileus; R59.0 Localized enlarged lymph nodes; D64.89 Other specified anemias; E87.6 Hypokalemia; M25.561 Pain in right knee; R33.8 Other retention of urine; I11.9 Hypertensive heart disease without heart failure; I48.91 Unspecified atrial fibrillation; M17.12 Unilateral primary osteoarthritis, left knee; Y83.8 Other surgical procedures as the cause of abnormal reaction of the patient, or of later complication, without mention of misadventure at the time of the procedure; B96.89 Other specified bacterial agents as the cause of diseases classified elsewhere

== ENCOUNTER 2024-09-13 10:11 | Emergency (ER) | payer OTHER ==
[~2024-09-13] VITALS: Ht 177.8 cm; Wt 59.0 kg
[~2024-09-13 10:11] MED LIST changes: +FAMOTIDINE20 MG PO
[2024-09-13] MEDS ORDERED: DEXAMETHASONE SODIUM PHOSPHATE 4 MG/ML VIAL IM ONE (10:45)
[2024-09-13] MEDS ORDERED: ORPHENADRINE CITRATE 30 MG/ML AMPUL IM ONE (10:45)
[2024-09-13] MEDS ORDERED: ORPHENADRINE CITRATE 30 MG/ML AMPUL ONE (10:52)
[2024-09-13] MEDS ORDERED: DEXAMETHASONE SODIUM PHOSPHATE 4 MG/ML VIAL ONE (10:53)
== END 2024-09-13 11:46 ==
LOC: ER 10:13
DX: M54.2 Cervicalgia (principal); I11.9 Hypertensive heart disease without heart failure; I48.91 Unspecified atrial fibrillation; Z85.46 Personal history of malignant neoplasm of prostate; M62.838 Other muscle spasm
CPT/HCPCS: 96372; 99282; J1100; J2360

== ENCOUNTER 2024-11-10 10:08 | Emergency (ER) | payer OTHER ==
[~2024-11-10] VITALS: Ht 177.8 cm; Wt 59.0 kg
[2024-11-10] MEDS ORDERED: KETOROLAC TROMETHAMINE 60 MG VIAL IM STA (10:43)
[2024-11-10] MEDS ORDERED: ACETAMINOPHEN 500 MG GEL..CAP PO STA (10:44)
== END 2024-11-10 12:36 | disposition home or self-care (01) ==
LOC: ER 10:11
DX: S90.112A Contusion of left great toe without damage to nail, initial encounter (principal); S90.122A Contusion of left lesser toe(s) without damage to nail, initial encounter; S90.121A Contusion of right lesser toe(s) without damage to nail, initial encounter; W18.39XA Other fall on same level, initial encounter; Y93.89 Activity, other specified; Y92.018 Other place in single-family (private) house as the place of occurrence of the external cause; Y99.9 Unspecified external cause status; I10 Essential (primary) hypertension

== ENCOUNTER 2025-01-03 00:51 | Emergency (ER) | payer OTHER ==
[~2025-01-03] VITALS: Ht 177.8 cm; Wt 63.5 kg
[2025-01-03] MEDS ORDERED: 0.9 % SODIUM CHLORIDE 1,000 ML IV STA (02:03)
[2025-01-03] MEDS ORDERED: HYOSCYAMINE SULFATE 0.125 MG TAB.SUBL SL STA (02:04)
[2025-01-03] MEDS ORDERED: KETOROLAC TROMETHAMINE 30 MG VIAL IV STA (02:04)
[2025-01-03] MEDS ORDERED: MORPHINE SULFATE 4 MG/ML VIAL IV STA (02:05)
[2025-01-03] MEDS ORDERED: HYOSCYAMINE SULFATE 0.125 MG TAB.SUBL ONE (02:17)
[2025-01-03] MEDS ORDERED: KETOROLAC TROMETHAMINE 30 MG VIAL ONE (02:17)
[2025-01-03 02:24] LABS: BASO % 0.2 % (0.1-1.2); EOS # 0.07 (0.04-0.54); EOS % 0.8 % (0.7-7.0); LYMPH # 0.93 (1.18-3.74); LYMPH % 10.3 % (19.3-53.1); MEAN CORPUSCULAR HEMOGLOBIN 23.1 pg (25.6-32.2); MONO % 8.8 % (4.7-12.5); NEUT # 7.23 (1.56-6.13); NEUT % 79.7 % (34.0-71.1); PLATELET COUNT 182 K/uL (163-369); RED BLOOD COUNT 3.59 M/uL (4.63-6.08); RED CELL DISTRIBUTION WIDTH 15.3 % (11.6-14.4)
[2025-01-03 02:25] LABS: HEMATOCRIT 24.4 % (40.1-51.0); HEMOGLOBIN 8.3 g/dL (13.7-17.5)
[2025-01-03 02:42] LABS: INR 1.04; PARTIAL THROMBOPLASTIN TIME 32.2 SECONDS (22.0-34.0); PROTHROMBIN TIME 11.3 SECONDS (9.0-11.5)
[2025-01-03 02:47] LABS: ALBUMIN 3.1 gm/dL (3.4-5.0); BILIRUBIN TOTAL 0.3 mg/dL (0.3-1.2); CALCIUM 8.5 mg/dL (8.5-10.1); CREATININE SERUM 0.94 mg/dL (0.70-1.30); GFR 77.22; POTASSIUM 4.04 mEq/L (3.5-5.1); TOTAL PROTEIN 7.1 gm/dL (6.4-8.2)
[2025-01-03] MEDS ORDERED: CIPROFLOXACIN IN 5 % DEXTROSE 400 MG/200 ML PIGGYBAG IV STA (05:22)
[2025-01-03] MEDS ORDERED: CIPROFLOXACIN IN 5 % DEXTROSE 400 MG/200 ML PIGGYBAG IV ONE (05:25)
[2025-01-03] MEDS ORDERED: TRAMADOL HCL 50 MG TABLET PO STA (05:34)
[2025-01-03] MEDS ORDERED: LIDOCAINE HCL VISCOUS 20MG/ML BLIST 15ML MM ONE (10:32)
[2025-01-03 11:39] LABS: URINE APPEARANCE TURBID; URINE BILIRRUBIN LARGE (NEGATIVE); URINE BLOOD LARGE; URINE COLOR RED; URINE GLUCOSE 100 MG/DL (NEGATIVE); URINE KETONE 40 (NEGATIVE)
[2025-01-03 11:40] LABS: URINE EPITHELIAL CELLS 0-4 /HPF; URINE LEUKOCYTE POSITIVE; URINE NITRATE POSITIVE; URINE PROTEIN >=300 (NEGATIVE); URINE RBC LOADED /HPF; URINE UROBILINOGEN >= 8.0 E.U./dl
[2025-01-03 11:41] LABS: URINE BACTERIA FEW
[2025-01-03 14:21] LABS: BASO % 0.2 % (0.1-1.2); EOS # 0.01 (0.04-0.54); EOS % 0.1 % (0.7-7.0); LYMPH % 7.4 % (19.3-53.1); MEAN CORPUSCULAR HEMOGLOBIN 23.4 pg (25.6-32.2); MONO # 0.84 (0.24-0.82); MONO % 8.9 % (4.7-12.5); NEUT # 7.84 (1.56-6.13); NEUT % 83.2 % (34.0-71.1); PLATELET COUNT 202 K/uL (163-369); RED BLOOD COUNT 3.63 M/uL (4.63-6.08); RED CELL DISTRIBUTION WIDTH 15.1 % (11.6-14.4)
[2025-01-03 14:38] LABS: HEMATOCRIT 24.6 % (40.1-51.0); HEMOGLOBIN 8.5 g/dL (13.7-17.5)
== END 2025-01-03 23:00 | disposition designated cancer center or children's hospital (05) ==
LOC: ER 01:53
PROVIDERS: Emergency Medicine
DX: N13.8 Other obstructive and reflux uropathy (principal); N20.2 Calculus of kidney with calculus of ureter

== ENCOUNTER 2025-01-18 11:37 | Emergency (ER) | payer OTHER ==
[~2025-01-18] VITALS: Ht 177.8 cm; Wt 63.5 kg
== END 2025-01-18 15:36 | disposition home or self-care (01) ==
LOC: ER 11:45
DX: Z97.8 Presence of other specified devices (principal); C61 Malignant neoplasm of prostate; N39.9 Disorder of urinary system, unspecified; I10 Essential (primary) hypertension

== ENCOUNTER 2025-01-25 22:47 | Inpatient (IN) | payer OTHER ==
[~2025-01-25] VITALS: Ht 177.8 cm; Wt 63.5 kg
[2025-01-26] MEDS ORDERED: LACTOBACILLUS ACIDOPHILUS 1 CAP CAP PO STA (00:25)
[2025-01-26] MEDS ORDERED: HYOSCYAMINE SULFATE 0.125 MG TAB.SUBL SL ONE (00:30)
[2025-01-26] MEDS ORDERED: LACTOBACILLUS ACIDOPHILUS 1 CAP CAP PO ONE (00:30)
[2025-01-26] MEDS ORDERED: HYOSCYAMINE SULFATE 0.125 MG TAB.SUBL ONE (00:30)
[2025-01-26] MEDS ORDERED: 0.9 % SODIUM CHLORIDE 500 ML IV ONE (00:30)
[2025-01-26] MEDS ORDERED: LEVALBUTEROL HCL 0.63 MG/3 ML SOLUTION IH SCH (00:30)
[2025-01-26] MEDS ORDERED: FAMOTIDINE/PF 20 MG/2 ML VIAL IV PUSH STA (00:34)
[2025-01-26 01:32] LABS: BASO % 1.2 % (0.1-1.2); EOS # 0.26 (0.04-0.54); EOS % 2.2 % (0.7-7.0); HEMATOCRIT 36.6 % (40.1-51.0); LYMPH # 1.45 (1.18-3.74); LYMPH % 12.2 % (19.3-53.1); MEAN CORPUSCULAR HEMOGLOBIN 25.7 pg (25.6-32.2); MONO # 0.96 (0.24-0.82); MONO % 8.1 % (4.7-12.5); NEUT # 9.07 (1.56-6.13); PLATELET COUNT 248 K/uL (163-369); RED BLOOD COUNT 4.75 M/uL (4.63-6.08)
[2025-01-26 01:58] LABS: COVID-19 AG NEGATIVE (NEGATIVE); INFLUENZA A AG NEGATIVE (NEGATIVE); INFLUENZA B AG NEGATIVE (NEGATIVE)
[2025-01-26 02:05] LABS: BILIRUBIN TOTAL 0.5 mg/dL (0.3-1.2); CALCIUM 8.9 mg/dL (8.5-10.1); CREATININE SERUM 1.21 mg/dL (0.70-1.30); GFR 57.7; GLOBULINA 4.7 G/DL (2.4-3.5); POTASSIUM 3.58 mEq/L (3.5-5.1); TOTAL PROTEIN 7.7 gm/dL (6.4-8.2)
[2025-01-26 02:12] LABS: HEMOGLOBIN 12.2 g/dL (13.7-17.5)
[2025-01-26] MEDS ORDERED: ASPIRIN 325 MG TABLET PO STA (02:42)
[2025-01-26] MEDS ORDERED: TICAGRELOR 90 MG TABLET PO STA (02:42)
[2025-01-26] MEDS ORDERED: NITROGLYCERIN 250 ML IV SCH (02:45)
[2025-01-26] MEDS ORDERED: FUROsemide 40 MG/4 ML VIAL IV STA (02:46)
[2025-01-26 02:54] LABS: ABG PH 7.491 (7.35-7.45); ABG pCO2 34.4 mmHg (35-45); BASE EXCESS 2.8 mmol/l; BICARBONATE 25.7 mmol/l (23-25); SaO2 92.8 %; Tco2 26.8 mmol/l
[2025-01-26] MEDS ORDERED: FUROsemide 40 MG/4 ML VIAL ONE (03:07)
[2025-01-26] MEDS ORDERED: NITROGLYCERIN IN 5 % DEXTROSE 50 MG/250 ML BOTTLE IV ONE (03:08)
[2025-01-26 04:49] LABS: ABG PO2 59.4 mmHg (80-100); allen test SATISFACTORY; mode ROOM AIR; o2 21 %; puncture site RADIAL RIGHT
[2025-01-26] MEDS ORDERED: NITROGLYCERIN IN 5 % DEXTROSE 250 ML IV SCH (10:15)
[2025-01-26] MEDS ORDERED: ACETAMINOPHEN 500 MG GEL..CAP PO ONE (11:42)
[2025-01-26] MEDS ORDERED: ATORVASTATIN CALCIUM 40 MG TABLET PO SCH (20:37)
[2025-01-26] MEDS ORDERED: METOPROLOL SUCCINATE 25 MG TAB.SR.24H PO SCH (20:37)
[2025-01-26] MEDS ORDERED: CEFTRIAXONE SODIUM 2,000 MG in 0.9 % SODIUM CHLORIDE 100 ML IV SCH (20:41)
[2025-01-26] MEDS ORDERED: ACETAMINOPHEN 500 MG GEL..CAP PO PRN (20:45)
[2025-01-26] MEDS ORDERED: FUROsemide 20 MG/2 ML VIAL IV SCH (21:00)
[2025-01-26] MEDS ORDERED: ENOXAPARIN SODIUM 60 MG/0.6 ML SYRINGE SUBCUTANEO SCH (21:00)
[2025-01-27] VITALS (18 sets, daily range): BP systolic 73–1336; BP diastolic 50–100; O2SAT 99–100
[2025-01-27] MEDS ORDERED: POVIDONE-IODINE 118 ML BOTT TOP ONE (00:16)
[2025-01-27] MEDS ORDERED: FUROsemide 20 MG/2 ML VIAL ONE (00:38)
[2025-01-27] MEDS ORDERED: ENOXAPARIN SODIUM 60 MG/0.6 ML SYRINGE SUBCUTANEO ONE (00:38)
[2025-01-27] MEDS ORDERED: CEFTRIAXONE SODIUM 2,000 MG VIAL ONE (00:38)
[2025-01-27 01:05] LABS: INR 1.21
[2025-01-27 01:08] LABS: D DIMER 1.32 MG/L; PARTIAL THROMBOPLASTIN TIME 33.5 SECONDS (22.0-34.0)
[2025-01-27] MEDS ORDERED: TICAGRELOR 90 MG TABLET PO SCH (05:00)
[2025-01-27] MEDS ORDERED: TICAGRELOR 90 MG TABLET PO ONE (05:23)
[2025-01-27] MEDS ORDERED: ENALAPRILAT DIHYDRATE 2.5 MG/2 ML VIAL IV SCH (07:21)
[2025-01-27 07:42] LABS: CHOL HDL RATIO 2.4 (0-5.0); TSH 1.85 uIU/mL (0.358-3.74)
[2025-01-27] MEDS ORDERED: METOPROLOL SUCCINATE 50 MG TAB.SR.24H PO SCH (09:00)
[2025-01-27] MEDS ORDERED: ASPIRIN 81 MG TAB.CHEW PO SCH (09:00)
[2025-01-27 09:24] LABS: BASO % 1.7 % (0.1-1.2); EOS # 0.28 (0.04-0.54); EOS % 3.9 % (0.7-7.0); HEMATOCRIT 38.6 % (40.1-51.0); HEMOGLOBIN 12.5 g/dL (13.7-17.5); LYMPH # 1.14 (1.18-3.74); MEAN CORPUSCULAR HEMOGLOBIN 24.9 pg (25.6-32.2); MONO # 0.62 (0.24-0.82); MONO % 8.7 % (4.7-12.5); NEUT # 4.97 (1.56-6.13); NEUT % 69.6 % (34.0-71.1); PLATELET COUNT 278 K/uL (163-369); RED BLOOD COUNT 5.03 M/uL (4.63-6.08); RED CELL DISTRIBUTION WIDTH 17.8 % (11.6-14.4)
[2025-01-27 10:43] LABS: ABG PH 7.477 (7.35-7.45); ABG PO2 133.6 mmHg (80-100); ABG pCO2 34.3 mmHg (35-45); BASE EXCESS 1.7 mmol/l; BICARBONATE 24.8 mmol/l (23-25); SaO2 99.2 %; Tco2 25.8 mmol/l
[2025-01-27 12:26] LABS: ALBUMIN 2.5 gm/dL (3.4-5.0); BILIRUBIN TOTAL 0.53 mg/dL (0.3-1.2); CALCIUM 8.5 mg/dL (8.5-10.1); CREATININE SERUM 1.23 mg/dL (0.70-1.30); GFR 56.62; GLOBULINA 4.3 G/DL (2.4-3.5); POTASSIUM 3.23 mEq/L (3.5-5.1); TOTAL PROTEIN 6.8 gm/dL (6.4-8.2)
[2025-01-27 15:29] LABS: allen test SATISFACTORY; mode NASAL CANNULA; o2 32 %; puncture site RADIAL RIGHT
[2025-01-28 01:00] VITALS: BP 131/70; O2SAT 100
[2025-01-28 03:00] VITALS: BP 122/80; O2SAT 100
[2025-01-28] MEDS ORDERED: TICAGRELOR 90 MG TABLET PO ONE (05:04)
[2025-01-28] MEDS ORDERED: ACETAMINOPHEN 500 MG GEL..CAP PO ONE (05:29)
[2025-01-28 05:43] VITALS: BP 136/93; O2SAT 100
[2025-01-28 06:24] LABS: BASO % 1.2 % (0.1-1.2); EOS # 0.45 (0.04-0.54); HEMATOCRIT 35.2 % (40.1-51.0); HEMOGLOBIN 11.5 g/dL (13.7-17.5); LYMPH # 1.14 (1.18-3.74); LYMPH % 15.3 % (19.3-53.1); MEAN CORPUSCULAR HEMOGLOBIN 25.4 pg (25.6-32.2); MONO # 0.78 (0.24-0.82); MONO % 10.5 % (4.7-12.5); NEUT # 4.99 (1.56-6.13); NEUT % 66.9 % (34.0-71.1); PLATELET COUNT 251 K/uL (163-369); RED BLOOD COUNT 4.52 M/uL (4.63-6.08); RED CELL DISTRIBUTION WIDTH 17.7 % (11.6-14.4)
[2025-01-28 07:03] LABS: URINE BACTERIA 2171.3 uL (0.0-1933); URINE CAST 2.94 uL (0.0-1.40); URINE EPITHELIAL CELLS 7.1 uL (0.0-38.8); URINE RBC 827.7 uL (0.0-20.8); URINE WBC 4663.5 uL (0.0-23.2)
[2025-01-28 07:22] LABS: URINE APPEARANCE TURBID; URINE BILIRRUBIN NEGATIVE (NEGATIVE); URINE BLOOD MODERATE; URINE COLOR YELLOW; URINE GLUCOSE NEGATIVE (NEGATIVE); URINE KETONE NEGATIVE (NEGATIVE); URINE LEUKOCYTE SMALL; URINE NITRATE POSITIVE; URINE PROTEIN 100 (NEGATIVE); URINE UROBILINOGEN 0.2 E.U./dl
[2025-01-28 08:44] LABS: ALBUMIN 2.3 gm/dL (3.4-5.0); ALKALINE PHOSPHATASE 118 U/L (50-136); ALT/SGPT 26 U/L (12-78); AST/SGOT 21 U/L (15-37); BILIRUBIN TOTAL 0.37 mg/dL (0.3-1.2); BLOOD UREA NITROGEN 24 mg/dL (7-18); BUN CREA RATIO 19 (7.0-25.0); CALCIUM 8.2 mg/dL (8.5-10.1); CARBON DIOXIDE 32 mEq/L (21-32); CREATININE SERUM 1.24 mg/dL (0.70-1.30); GFR 56.09; GLOBULINA 3.3 G/DL (2.4-3.5); GLUCOSE FASTING 92 mg/dL (65-100); PHOSPHOROUS 3.8 mg/dL (2.5-4.9); TOTAL PROTEIN 5.6 gm/dL (6.4-8.2)
[2025-01-28] MEDS ORDERED: LOSARTAN POTASSIUM 100 MG TABLET PO SCH (09:00)
[2025-01-28] MEDS ORDERED: ENOXAPARIN SODIUM 60 MG/0.6 ML SYRINGE SUBCUTANEO SCH (09:00)
[2025-01-28] MEDS ORDERED: FUROsemide 20 MG TABLET PO SCH (09:00)
[2025-01-28] MEDS ORDERED: ISOSORBIDE MONONITRATE 30 MG TABLET PO SCH (09:00)
[2025-01-28 09:43] VITALS: BP 132/96; O2SAT 98
[2025-01-28 12:35] LABS: ANION GAP 11 (10.0-20.0); CHLORIDE 104 mmol/L (98-107); OSMOLALITY SERUM 289 MOSM/KG (275-295); POTASSIUM 3.97 mEq/L (3.5-5.1); PROSTATIC SPECIFIC ANTIGEN < 0.010 NG/ML (0.010-4.00); SODIUM 143 mmol/L (136-145)
[2025-01-28 12:58] LABS: FERRITIN 544.9 NG/ML (26-388)
[2025-01-28 13:33] LABS: FOLIC ACID 15.51 ng/ml (4.78-20)
[2025-01-28 14:19] LABS: ob POSITIVE (NEGATIVE)
[2025-01-28 21:59] VITALS: BP 138/79
[2025-01-29 02:32] VITALS: BP 144/83; O2SAT 97
[2025-01-29 05:47] LABS: ALBUMIN 2.2 gm/dL (3.4-5.0); BILIRUBIN TOTAL 0.28 mg/dL (0.3-1.2); CALCIUM 7.6 mg/dL (8.5-10.1); CREATININE SERUM 1.3 mg/dL (0.70-1.30); GFR 53.11; GLOBULINA 3.3 G/DL (2.4-3.5); POTASSIUM 3.28 mEq/L (3.5-5.1); TOTAL PROTEIN 5.5 gm/dL (6.4-8.2)
[2025-01-29] MEDS ORDERED: CLOPIDOGREL BISULFATE 75 MG TABLET PO SCH (09:00)
[2025-01-29] MEDS ORDERED: FUROsemide 20 MG TABLET PO SCH (09:00)
[2025-01-29] MEDS ORDERED: SOD FERRIC GLUC COMPLX/SUCROSE 62.5 MG in 0.9 % SODIUM CHLORIDE 50 ML IV SCH (09:00)
[2025-01-29] MEDS ORDERED: POTASSIUM CHLORIDE IN WATER 40 MEQ/100 ML PIGGYBAG IV NR (09:00)
[2025-01-29 09:14] VITALS: BP 132/76; O2SAT 100
[2025-01-29] MEDS ORDERED: MEROPENEM 500 MG/VIAL VIAL IV SCH (13:29)
[2025-01-29] MEDS ORDERED: APIXABAN 5 MG TABLET PO SCH (17:00)
[2025-01-29 18:00] VITALS: BP 127/85; O2SAT 96
[2025-01-30 01:00] VITALS: BP 148/82; O2SAT 96
[2025-01-30 09:51] VITALS: BP 149/89
[2025-01-30 18:44] VITALS: BP 156/74; O2SAT 100
[2025-01-31 01:21] VITALS: BP 123/76; O2SAT 100
[2025-01-31 07:47] LABS: BASO % 0.9 % (0.1-1.2); EOS # 0.31 (0.04-0.54); EOS % 4.8 % (0.7-7.0); HEMATOCRIT 28.5 % (40.1-51.0); HEMOGLOBIN 9.2 g/dL (13.7-17.5); LYMPH # 1.23 (1.18-3.74); MEAN CORPUSCULAR HEMOGLOBIN 25.5 pg (25.6-32.2); MONO # 0.79 (0.24-0.82); NEUT # 4.07 (1.56-6.13); NEUT % 62.9 % (34.0-71.1); PLATELET COUNT 217 K/uL (163-369); RED BLOOD COUNT 3.61 M/uL (4.63-6.08); RED CELL DISTRIBUTION WIDTH 17.5 % (11.6-14.4)
[2025-01-31 07:54] LABS: MONO % 12.2 % (4.7-12.5)
[2025-01-31 08:05] LABS: ALBUMIN 2.1 gm/dL (3.4-5.0); BILIRUBIN TOTAL 0.21 mg/dL (0.3-1.2); CALCIUM 7.7 mg/dL (8.5-10.1); CREATININE SERUM 1.02 mg/dL (0.70-1.30); GFR 70.27; GLOBULINA 3.1 G/DL (2.4-3.5); PHOSPHOROUS 2.9 mg/dL (2.5-4.9); POTASSIUM 3.45 mEq/L (3.5-5.1); TOTAL PROTEIN 5.2 gm/dL (6.4-8.2)
[2025-01-31 08:52] LABS: URINE APPEARANCE Cloudy; URINE BILIRRUBIN Negative (NEGATIVE); URINE BLOOD Moderate; URINE COLOR Dark Yellow; URINE GLUCOSE Negative (NEGATIVE); URINE KETONE 15 (NEGATIVE); URINE LEUKOCYTE Moderate; URINE NITRATE Positive
[2025-01-31 08:56] LABS: URINE BACTERIA 851.9 uL (0.0-1933); URINE RBC 141.1 uL (0.0-20.8); URINE WBC 1125.8 uL (0.0-23.2)
[2025-01-31 09:06] LABS: URINE CAST 0.29 uL (0.0-1.40); URINE PROTEIN 300 (NEGATIVE)
[2025-01-31 10:10] LABS: C-REACTIVE PROTEIN 1.74 MG/DL (0.00-0.29)
[2025-01-31 10:11] VITALS: BP 125/69; O2SAT 97
[2025-01-31 10:11] LABS: MAGNESIUM 1.1 mg/dL (1.8-2.4)
[2025-01-31] MEDS ORDERED: MAGNESIUM SULFATE IN WATER 50 ML IV NR (13:20)
[2025-01-31 16:51] VITALS: BP 128/73; O2SAT 100
[2025-02-01 01:22] VITALS: BP 135/81; O2SAT 100
[2025-02-01 07:40] LABS: ALBUMIN 2.2 gm/dL (3.4-5.0); CALCIUM 7.8 mg/dL (8.5-10.1); CREATININE SERUM 0.88 mg/dL (0.70-1.30); GFR 83.32; MAGNESIUM 1.6 mg/dL (1.8-2.4); PHOSPHOROUS 2.6 mg/dL (2.5-4.9); POTASSIUM 3.84 mEq/L (3.5-5.1)
[2025-02-01 09:57] VITALS: BP 138/78; O2SAT 97
[2025-02-01 18:10] VITALS: BP 111/70; O2SAT 100
[2025-02-02 00:26] VITALS: BP 134/75; O2SAT 97
[2025-02-02 07:08] LABS: ALBUMIN 2.2 gm/dL (3.4-5.0); BILIRUBIN TOTAL 0.3 mg/dL (0.3-1.2); CREATININE SERUM 0.91 mg/dL (0.70-1.30); GFR 80.16; GLOBULINA 3.2 G/DL (2.4-3.5); POTASSIUM 3.88 mEq/L (3.5-5.1); TOTAL PROTEIN 5.4 gm/dL (6.4-8.2)
[2025-02-02 08:33] VITALS: BP 129/82
[2025-02-02] MEDS ORDERED: ELIQUIS5 MG PO (11:40)
[2025-02-02] MEDS ORDERED: CLOPIDOGREL BIS75 MG PO (11:41)
[2025-02-02] MEDS ORDERED: LOSARTAN POTAS100 MG PO (11:41)
[2025-02-02] MEDS ORDERED: LIPITOR40 M1 PO (11:41)
[2025-02-02] MEDS ORDERED: ISOSORBIDE MONO30 MG PO (11:42)
[2025-02-02] MEDS ORDERED: TOPROL XL50 M1 PO (11:42)
[2025-02-02] MEDS ORDERED: PROTONIX40 MG PO (11:43)
[2025-02-02] MEDS ORDERED: PROSCAR5 MG PO (11:44)
[2025-02-02] MEDS ORDERED: FOLIC ACID1 MG PO (11:44)
[2025-02-02] MEDS ORDERED: TAMS0.4C PO (11:45)
[2025-02-02] MEDS ORDERED: ABANEU-SL TABL1 EACH SL (11:49)
== END 2025-02-02 16:45 | disposition home or self-care (01) | DRG 280 ==
LOC: ER 23:03 → ICU-2 01-26 20:48 → SEC-K 01-28 10:13 → MEDI 01-28 17:35 → MEDJ 01-29 10:40
PROVIDERS: General Practice; Internal Medicine; Internal Medicine Infectious Disease; Internal Medicine Nephrology; ADMIT Internal Medicine; ATTEND Internal Medicine
PROC: BB24Y0Z Computerized Tomography (CT Scan) of Bilateral Lungs using Other Contrast, Unenhanced and Enhanced (ICD-10-PCS; principal; 2025-01-26)
PROC: B246ZZZ Ultrasonography of Right and Left Heart (ICD-10-PCS; 2025-01-26)
PROC: B54DZZZ Ultrasonography of Bilateral Lower Extremity Veins (ICD-10-PCS; 2025-01-28)
PROC: 8E0ZXY6 Isolation (ICD-10-PCS; 2025-01-29)
DX: I21.4 Non-ST elevation (NSTEMI) myocardial infarction (principal); A41.9 Sepsis, unspecified organism; I26.99 Other pulmonary embolism without acute cor pulmonale; I50.33 Acute on chronic diastolic (congestive) heart failure; J90 Pleural effusion, not elsewhere classified; N17.8 Other acute kidney failure; N39.0 Urinary tract infection, site not specified; I11.0 Hypertensive heart disease with heart failure; B96.29 Other Escherichia coli [E. coli] as the cause of diseases classified elsewhere

== ENCOUNTER 2025-04-29 16:06 | Inpatient (IN) | payer OTHER ==
[~2025-04-29] VITALS: Ht 177.8 cm; Wt 59.0 kg
[~2025-04-29 16:06] MED LIST changes: +ABANEU-SL TABL1 EACH SL; +CLOPIDOGREL BIS75 MG PO; +FOLIC ACID1 MG PO; +ISOSORBIDE MONO30 MG PO; +LIPITOR40 M1 PO; +LOSARTAN POTAS100 MG PO; +PROSCAR5 MG PO; +PROTONIX40 MG PO; +TAMS0.4C PO; +TOPROL XL50 M1 PO
[2025-04-29 17:30] LABS: BASO % 0.6 % (0.1-1.2); EOS # 0.17 (0.04-0.54); EOS % 2.6 % (0.7-7.0); LYMPH # 1.49 (1.18-3.74); LYMPH % 22.4 % (19.3-53.1); MEAN PLATELET VOLUME 10.30 fl (9.4-12.4); MONO # 0.95 (0.24-0.82); NEUT # 3.98 (1.56-6.13); NEUT % 59.9 % (34.0-71.1); RED CELL DISTRIBUTION WIDTH 17.2 % (11.6-14.4)
[2025-04-29 17:34] LABS: MONO % 14.3 % (4.7-12.5)
[2025-04-29 18:01] LABS: INR 1.1
[2025-04-29 18:07] LABS: ALT/SGPT 52.0 U/L (12-78); AST/SGOT 24.0 U/L (15-37); BILIRUBIN TOTAL 0.45 mg/dL (0.3-1.2); BUN CREA RATIO 17.0 (7.0-25.0); CREATININE SERUM 1.4 mg/dL (0.70-1.30); GFR 48.76; GLOBULINA 3.6 G/DL (2.4-3.5); GLUCOSE FASTING 89.0 mg/dL (65-100); OSMOLALITY SERUM 277.0 MOSM/KG (275-295)
[2025-04-29 18:12] LABS: URINE APPEARANCE Turbid; URINE BILIRRUBIN Negative (NEGATIVE); URINE BLOOD Large; URINE COLOR Yellow; URINE GLUCOSE Negative (NEGATIVE); URINE KETONE Negative (NEGATIVE); URINE LEUKOCYTE Large; URINE NITRATE Negative; URINE UROBILINOGEN 0.2 E.U./dl
[2025-04-29 18:16] LABS: URINE BACTERIA 363.5 uL (0.0-1933); URINE CAST 0.58 uL (0.0-1.40); URINE EPITHELIAL CELLS 2.6 uL (0.0-38.8); URINE PROTEIN 100 (NEGATIVE); URINE RBC 467.4 uL (0.0-20.8); URINE WBC 3646.2 uL (0.0-23.2)
[2025-04-30 02:08] VITALS: BP 113/67; O2SAT 100
[2025-04-30 09:43] VITALS: BP 121/63; O2SAT 97
[2025-04-30 16:49] VITALS: BP 128/70
[2025-04-30 23:40] VITALS: BP 143/68; O2SAT 100
[2025-05-01 08:41] VITALS: BP 97/61; O2SAT 100
[2025-05-01 11:01] LABS: BASO % 1.0 % (0.1-1.2); EOS # 0.17 (0.04-0.54); EOS % 2.8 % (0.7-7.0); LYMPH # 1.21 (1.18-3.74); LYMPH % 20.2 % (19.3-53.1); MEAN PLATELET VOLUME 10.50 fl (9.4-12.4); MONO # 0.75 (0.24-0.82); NEUT # 3.79 (1.56-6.13); NEUT % 63.3 % (34.0-71.1); RED CELL DISTRIBUTION WIDTH 18.2 % (11.6-14.4)
[2025-05-01 11:06] LABS: MONO % 12.5 % (4.7-12.5)
== END 2025-05-01 13:59 | disposition home or self-care (01) | DRG 812 ==
LOC: ER 16:06 → MEDI 21:55
PROVIDERS: General Practice; ADMIT Internal Medicine; ATTEND Internal Medicine
PROC: 30233N1 Transfusion of Nonautologous Red Blood Cells into Peripheral Vein, Percutaneous Approach (ICD-10-PCS; principal; 2025-04-30)
DX: D53.8 Other specified nutritional anemias (principal); I48.91 Unspecified atrial fibrillation; I10 Essential (primary) hypertension

== ENCOUNTER 2025-06-23 10:57 | Inpatient (IN) | payer OTHER ==
[~2025-06-23] VITALS: Ht 177.8 cm; Wt 59.0 kg
[2025-06-23] MEDS ORDERED: ONDANSETRON HCL 4 MG in 0.9 % SODIUM CHLORIDE 50 ML IV ONE (11:45)
[2025-06-23] MEDS ORDERED: ACETAMINOPHEN 500 MG GEL..CAP PO ONE ×2 (11:45→11:57)
[2025-06-23] MEDS ORDERED: FAMOTIDINE/PF 20 MG in 0.9 % SODIUM CHLORIDE 8 ML IV PUSH ONE (11:45)
[2025-06-23] MEDS ORDERED: 0.9 % SODIUM CHLORIDE 1,000 ML IV SCH (11:45)
[2025-06-23] MEDS ORDERED: ONDANSETRON HCL 2 MG/ML VIAL ONE (11:57)
[2025-06-23] MEDS ORDERED: FAMOTIDINE/PF 20 MG/2 ML VIAL ONE (11:58)
[2025-06-23 13:10] LABS: URINE APPEARANCE Cloudy; URINE BILIRRUBIN Negative (NEGATIVE); URINE BLOOD Moderate; URINE COLOR Yellow; URINE GLUCOSE Negative (NEGATIVE); URINE KETONE Negative (NEGATIVE); URINE LEUKOCYTE Moderate; URINE NITRATE Negative; URINE UROBILINOGEN 0.2 E.U./dl
[2025-06-23 13:12] LABS: URINE BACTERIA 2783.9 uL (0.0-1933); URINE EPITHELIAL CELLS 4.3 uL (0.0-38.8); URINE RBC 292.1 uL (0.0-20.8); URINE WBC 2537.9 uL (0.0-23.2)
[2025-06-23 13:20] LABS: BASO % 1.1 % (0.1-1.2); EOS # 0.14 (0.04-0.54); EOS % 2.5 % (0.7-7.0); LYMPH # 1.43 (1.18-3.74); LYMPH % 25.9 % (19.3-53.1); MEAN PLATELET VOLUME 10.40 fl (9.4-12.4); MONO # 0.54 (0.24-0.82); MONO % 9.8 % (4.7-12.5); NEUT # 3.34 (1.56-6.13); NEUT % 60.5 % (34.0-71.1); RED CELL DISTRIBUTION WIDTH 16.3 % (11.6-14.4)
[2025-06-23 13:32] LABS: URINE CAST 0.73 uL (0.0-1.40); URINE PROTEIN 100 (NEGATIVE)
[2025-06-23 13:47] LABS: INR 1.09
[2025-06-23 13:50] LABS: ALT/SGPT 30.0 U/L (12-78); AST/SGOT 24.0 U/L (15-37); BILIRUBIN TOTAL 0.59 mg/dL (0.3-1.2); BUN CREA RATIO 11.0 (7.0-25.0); CREATININE SERUM 1.26 mg/dL (0.70-1.30); GFR 54.93; GLOBULINA 4.0 G/DL (2.4-3.5); GLUCOSE FASTING 107.0 mg/dL (65-100); OSMOLALITY SERUM 278.0 MOSM/KG (275-295)
[2025-06-23] MEDS ORDERED: CEFTRIAXONE SODIUM 2,000 MG in 0.9 % SODIUM CHLORIDE 100 ML IV ONE (15:15)
[2025-06-23] MEDS ORDERED: CEFTRIAXONE SODIUM 2,000 MG VIAL ONE (17:57)
[2025-06-23] MEDS ORDERED: ACETAMINOPHEN 325 MG TABLET PO PRN (18:30)
[2025-06-23] MEDS ORDERED: hydrALAZINE HCL 20 MG VIAL IV PRN (18:30)
[2025-06-23 18:46] VITALS: BP 160/83
[2025-06-23 23:00] VITALS: BP 153/77; O2SAT 98
[2025-06-24 08:33] VITALS: BP 127/75; O2SAT 100
[2025-06-24] MEDS ORDERED: LOSARTAN POTASSIUM 100 MG TABLET PO SCH (09:00)
[2025-06-24] MEDS ORDERED: CEFTRIAXONE SODIUM 2,000 MG in 0.9 % SODIUM CHLORIDE 100 ML IV SCH (09:00)
[2025-06-24] MEDS ORDERED: TAMSULOSIN HCL 0.4 MG CAP PO SCH (09:00)
[2025-06-24] MEDS ORDERED: FINASTERIDE 5 MG TABLET PO SCH (09:00)
[2025-06-24] MEDS ORDERED: PANTOPRAZOLE SODIUM 40 MG/VIAL VIAL IV SCH (09:00)
[2025-06-24] MEDS ORDERED: METOPROLOL SUCCINATE 50 MG TAB.SR.24H PO SCH (09:00)
[2025-06-24] MEDS ORDERED: ISOSORBIDE MONONITRATE 30 MG TABLET PO SCH (09:00)
[2025-06-24] MEDS ORDERED: SOD FERRIC GLUC COMPLX/SUCROSE 125 MG in 0.9 % SODIUM CHLORIDE 100 ML IV SCH (09:49)
[2025-06-24 15:30] VITALS: BP 101/66; O2SAT 98
[2025-06-24 20:53] LABS: BASO % 0.8 % (0.1-1.2); EOS # 0.09 (0.04-0.54); EOS % 1.5 % (0.7-7.0); LYMPH # 0.89 (1.18-3.74); LYMPH % 14.4 % (19.3-53.1); MEAN PLATELET VOLUME 11.90 fl (9.4-12.4); MONO # 0.52 (0.24-0.82); MONO % 8.4 % (4.7-12.5); NEUT # 4.59 (1.56-6.13); NEUT % 74.6 % (34.0-71.1); RED CELL DISTRIBUTION WIDTH 16.7 % (11.6-14.4)
[2025-06-24 22:21] VITALS: BP 183/82
[2025-06-25 02:33] VITALS: BP 128/66; O2SAT 99
[2025-06-25] MEDS ORDERED: PANTOPRAZOLE SODIUM 40 MG TABLET.DR PO SCH (09:00)
[2025-06-25 10:28] VITALS: BP 150/75; O2SAT 96
[2025-06-25 13:51] LABS: BASO % 1.3 % (0.1-1.2); EOS # 0.18 (0.04-0.54); EOS % 3.4 % (0.7-7.0); LYMPH # 1.27 (1.18-3.74); LYMPH % 23.8 % (19.3-53.1); MEAN PLATELET VOLUME 12.00 fl (9.4-12.4); MONO # 0.54 (0.24-0.82); MONO % 10.1 % (4.7-12.5); NEUT # 3.27 (1.56-6.13); NEUT % 61.2 % (34.0-71.1); RED CELL DISTRIBUTION WIDTH 16.7 % (11.6-14.4)
[2025-06-25 18:48] VITALS: BP 140/77; O2SAT 96
[2025-06-26 03:50] VITALS: BP 142/67; O2SAT 100
[2025-06-26 09:37] VITALS: BP 143/73; O2SAT 99
[2025-06-26 16:29] LABS: BASO % 0.8 % (0.1-1.2); EOS # 0.19 (0.04-0.54); EOS % 4.0 % (0.7-7.0); LYMPH # 1.28 (1.18-3.74); LYMPH % 27.1 % (19.3-53.1); MEAN PLATELET VOLUME 12.00 fl (9.4-12.4); MONO # 0.54 (0.24-0.82); MONO % 11.4 % (4.7-12.5); NEUT # 2.67 (1.56-6.13); NEUT % 56.5 % (34.0-71.1); RED CELL DISTRIBUTION WIDTH 16.9 % (11.6-14.4)
[2025-06-26 17:00] LABS: BUN CREA RATIO 9.0 (7.0-25.0); CREATININE SERUM 1.17 mg/dL (0.70-1.30); GFR 59.83; GLUCOSE FASTING 102.0 mg/dL (65-100); OSMOLALITY SERUM 281.0 MOSM/KG (275-295)
[2025-06-26 18:51] VITALS: BP 135/72; O2SAT 98
[2025-06-27 04:09] VITALS: BP 133/74; O2SAT 99
[2025-06-27 10:26] VITALS: BP 147/77; O2SAT 98
[2025-06-27 18:41] VITALS: BP 137/77
[2025-06-28 02:38] VITALS: BP 116/68; O2SAT 97
[2025-06-28 15:42] LABS: BASO % 0.7 % (0.1-1.2); EOS # 0.20 (0.04-0.54); EOS % 2.5 % (0.7-7.0); LYMPH # 1.29 (1.18-3.74); LYMPH % 15.9 % (19.3-53.1); MONO # 0.75 (0.24-0.82); MONO % 9.3 % (4.7-12.5); NEUT # 5.76 (1.56-6.13); NEUT % 71.2 % (34.0-71.1); RED CELL DISTRIBUTION WIDTH 18.3 % (11.6-14.4)
[2025-06-28 18:48] VITALS: BP 146/86
== END 2025-06-28 21:00 | disposition home or self-care (01) | DRG 811 ==
LOC: ER 10:57 → SEC-K 18:58 → MEDJ 06-24 12:37
PROVIDERS: General Practice; Specialist/Technologist, Other Nephrology; ADMIT Internal Medicine; ATTEND Internal Medicine
PROC: BW21YZZ Computerized Tomography (CT Scan) of Abdomen and Pelvis using Other Contrast (ICD-10-PCS; principal; 2025-06-23)
PROC: BW3GZZZ Magnetic Resonance Imaging (MRI) of Pelvic Region (ICD-10-PCS; 2025-06-24)
PROC: 30233N1 Transfusion of Nonautologous Red Blood Cells into Peripheral Vein, Percutaneous Approach (ICD-10-PCS; 2025-06-24)
DX: D64.9 Anemia, unspecified (principal); I26.99 Other pulmonary embolism without acute cor pulmonale; I48.20 Chronic atrial fibrillation, unspecified; N17.9 Acute kidney failure, unspecified; R31.0 Gross hematuria; I10 Essential (primary) hypertension
CPT/HCPCS: 72195

== ENCOUNTER 2025-07-03 08:35 | Emergency (ER) | payer OTHER ==
[~2025-07-03] VITALS: Ht 177.8 cm; Wt 61.2 kg
[2025-07-03] MEDS ORDERED: NIFEDIPINE 10 MG CAPSULE PO ONE ×2 (09:00→09:23)
== END 2025-07-03 11:58 | disposition home or self-care (01) ==
LOC: ER 08:36
DX: I10 Essential (primary) hypertension (principal)

== ENCOUNTER 2025-07-06 19:45 | Emergency (ER) | payer OTHER ==
[~2025-07-06] VITALS: Ht 177.8 cm; Wt 63.5 kg
[2025-07-06] MEDS ORDERED: ONDANSETRON HCL 4 MG in 0.9 % SODIUM CHLORIDE 50 ML IV ONE (21:00)
[2025-07-06] MEDS ORDERED: DICYCLOMINE HCL 20 MG TABLET PO ONE (21:00)
[2025-07-06] MEDS ORDERED: NIFEDIPINE 30 MG TAB.SA.OSM PO ONE (21:00)
[2025-07-06] MEDS ORDERED: FAMOtidine 10 MG/ML (4ML VIAL) IV PUSH ONE (21:00)
[2025-07-06] MEDS ORDERED: NIFEDIPINE 10 MG CAPSULE PO ONE (21:04)
[2025-07-06] MEDS ORDERED: DICYCLOMINE HCL 10 MG CAPSULE PO ONE (21:05)
[2025-07-06] MEDS ORDERED: FAMOTIDINE/PF 20 MG/2 ML VIAL ONE (21:05)
[2025-07-06] MEDS ORDERED: ONDANSETRON HCL 2 MG/ML VIAL ONE (21:05)
[2025-07-06 21:44] LABS: BASO % 0.7 % (0.1-1.2); EOS # 0.16 (0.04-0.54); EOS % 1.8 % (0.7-7.0); LYMPH # 1.69 (1.18-3.74); LYMPH % 19.1 % (19.3-53.1); MEAN PLATELET VOLUME 12.40 fl (9.4-12.4); MONO # 1.02 (0.24-0.82); MONO % 11.6 % (4.7-12.5); NEUT # 5.88 (1.56-6.13); NEUT % 66.6 % (34.0-71.1); RED CELL DISTRIBUTION WIDTH 17.8 % (11.6-14.4)
[2025-07-06 21:56] LABS: ALT/SGPT 27.0 U/L (12-78); AST/SGOT 22.0 U/L (15-37); BILIRUBIN TOTAL 0.62 mg/dL (0.3-1.2); BUN CREA RATIO 11.0 (7.0-25.0); CREATININE SERUM 1.19 mg/dL (0.70-1.30); GFR 58.67; GLOBULINA 4.3 G/DL (2.4-3.5); GLUCOSE FASTING 98.0 mg/dL (65-100); OSMOLALITY SERUM 274.0 MOSM/KG (275-295)
[2025-07-06] MEDS ORDERED: DICY20TA PO (23:33)
== END 2025-07-07 00:14 | disposition home or self-care (01) ==
LOC: ER 19:46
PROVIDERS: General Practice
DX: I10 Essential (primary) hypertension (principal); R10.13 Epigastric pain; E78.49 Other hyperlipidemia

== ENCOUNTER 2025-07-20 04:19 | Emergency (ER) | payer OTHER ==
[~2025-07-20] VITALS: Ht 172.7 cm; Wt 67.1 kg
[~2025-07-20 04:19] MED LIST changes: +DICY20TA PO
[2025-07-20 04:47] VITALS: BP 138/83; O2SAT 98
[2025-07-20] MEDS ORDERED: ORPHENADRINE CITRATE 30 MG/ML AMPUL IM STA (04:58)
[2025-07-20] MEDS ORDERED: KETOROLAC TROMETHAMINE 60 MG VIAL IM STA (04:58)
[2025-07-20] MEDS ORDERED: DEXAMETHASONE SODIUM PHOSPHATE 4 MG/ML VIAL IM STA (04:59)
== END 2025-07-20 16:47 | disposition home or self-care (01) ==
LOC: ER 04:19
DX: M54.16 Radiculopathy, lumbar region (principal); R20.0 Anesthesia of skin
CPT/HCPCS: 72131; 96372; 99284; J1100; J1885; J2360

== ENCOUNTER 2025-08-16 05:54 | Emergency (ER) | payer OTHER ==
[~2025-08-16] VITALS: Ht 177.8 cm; Wt 59.0 kg
[2025-08-16] MEDS ORDERED: MORPHINE SULFATE 4 MG/ML VIAL IV PRN (07:30)
[2025-08-16] MEDS ORDERED: NIFEDIPINE 10 MG CAPSULE PO ONE ×2 (07:30→09:53)
[2025-08-16] MEDS ORDERED: FAMOTIDINE/PF 20 MG/2 ML VIAL IV ONE (07:30)
[2025-08-16] MEDS ORDERED: ONDANSETRON HCL 2 MG/ML VIAL IV ONE (07:30)
[2025-08-16] MEDS ORDERED: 0.9 % SODIUM CHLORIDE 1,000 ML IV ONE (07:30)
[2025-08-16] MEDS ORDERED: ONDANSETRON HCL 2 MG/ML VIAL ONE (07:45)
[2025-08-16] MEDS ORDERED: FAMOTIDINE/PF 20 MG/2 ML VIAL ONE (07:45)
[2025-08-16 08:51] LABS: INR 1.03
[2025-08-16 08:56] LABS: ALT/SGPT 32.0 U/L (12-78); AST/SGOT 26.0 U/L (15-37); BILIRUBIN TOTAL 0.42 mg/dL (0.3-1.2); BUN CREA RATIO 15.0 (7.0-25.0); CREATININE SERUM 1.37 mg/dL (0.70-1.30); GFR 49.87; GLOBULINA 4.8 G/DL (2.4-3.5); GLUCOSE FASTING 105.0 mg/dL (65-100); OSMOLALITY SERUM 279.0 MOSM/KG (275-295)
[2025-08-16 09:54] LABS: BASO % 0.6 % (0.1-1.2); EOS # 0.25 (0.04-0.54); EOS % 2.5 % (0.7-7.0); LYMPH # 0.73 (1.18-3.74); LYMPH % 7.3 % (19.3-53.1); MEAN PLATELET VOLUME 11.10 fl (9.4-12.4); MONO # 0.83 (0.24-0.82); MONO % 8.3 % (4.7-12.5); NEUT # 8.14 (1.56-6.13); NEUT % 81.0 % (34.0-71.1); RED CELL DISTRIBUTION WIDTH 16.5 % (11.6-14.4)
[2025-08-16 10:09] LABS: URINE APPEARANCE Clear; URINE BILIRRUBIN Negative (NEGATIVE); URINE BLOOD Small; URINE COLOR Yellow; URINE GLUCOSE Negative (NEGATIVE); URINE KETONE Negative (NEGATIVE); URINE LEUKOCYTE Moderate; URINE NITRATE Positive; URINE PROTEIN 30 (NEGATIVE); URINE UROBILINOGEN 0.2 E.U./dl
[2025-08-16 10:13] LABS: URINE RBC 46.8 uL (0.0-20.8); URINE WBC 1107.7 uL (0.0-23.2)
[2025-08-16 10:42] LABS: URINE BACTERIA > 9821.5 uL (0.0-1933); URINE CAST 0.56 uL (0.0-1.40); URINE EPITHELIAL CELLS 0.6 uL (0.0-38.8)
[2025-08-16] MEDS ORDERED: CEFTRIAXONE SODIUM 1,000 MG VIAL IV ONE (11:00)
[2025-08-16] MEDS ORDERED: CEFTRIAXONE SODIUM 1,000 MG VIAL ONE (11:05)
[2025-08-16] MEDS ORDERED: PROBIOTIC1 EAC2 PO (11:54)
[2025-08-16] MEDS ORDERED: CIPRO500 MG PO (11:54)
[2025-08-16] MEDS ORDERED: METRONIDAZOLE500 MG PO (11:54)
[2025-08-16] MEDS ORDERED: PEPCID AC20 MG PO (11:54)
[2025-08-16] MEDS ORDERED: LEVSIN/SL0.125 MG SL (11:54)
== END 2025-08-16 12:10 | disposition home or self-care (01) ==
LOC: ER 05:54
PROVIDERS: General Practice
DX: R10.31 Right lower quadrant pain (principal); R10.9 Unspecified abdominal pain; I10 Essential (primary) hypertension; N39.0 Urinary tract infection, site not specified; A08.8 Other specified intestinal infections
CPT/HCPCS: 36415; 74177; 93041; Q9965

== ENCOUNTER 2025-08-17 12:02 | Emergency (ER) | payer OTHER ==
[~2025-08-17] VITALS: Ht 172.7 cm; Wt 59.0 kg
[~2025-08-17 12:02] MED LIST changes: +CIPRO500 MG PO; +METRONIDAZOLE500 MG PO; +PEPCID AC20 MG PO; +PROBIOTIC1 EAC2 PO
[2025-08-17 14:39] VITALS: BP 144/79; O2SAT 20
[2025-08-17] MEDS ORDERED: CEFTRIAXONE SODIUM 1,000 MG VIAL IM ONE (15:30)
[2025-08-17] MEDS ORDERED: ACETAMINOPHEN 500 MG GEL..CAP PO ONE ×2 (15:30→15:57)
[2025-08-17] MEDS ORDERED: CEFTRIAXONE SODIUM 1,000 MG VIAL ONE (15:57)
[2025-08-17 16:30] LABS: BASO % 0.5 % (0.1-1.2); EOS # 0.20 (0.04-0.54); EOS % 2.6 % (0.7-7.0); LYMPH # 1.06 (1.18-3.74); LYMPH % 13.8 % (19.3-53.1); MEAN PLATELET VOLUME 11.60 fl (9.4-12.4); MONO # 0.74 (0.24-0.82); MONO % 9.7 % (4.7-12.5); NEUT # 5.61 (1.56-6.13); NEUT % 73.3 % (34.0-71.1); RED CELL DISTRIBUTION WIDTH 16.5 % (11.6-14.4)
[2025-08-17 16:50] LABS: URINE APPEARANCE Cloudy; URINE BILIRRUBIN Negative (NEGATIVE); URINE BLOOD Moderate; URINE COLOR Yellow; URINE GLUCOSE Negative (NEGATIVE); URINE KETONE Negative (NEGATIVE); URINE LEUKOCYTE Large; URINE NITRATE Negative; URINE PROTEIN 30 (NEGATIVE); URINE UROBILINOGEN 0.2 E.U./dl
[2025-08-17 16:55] LABS: URINE BACTERIA 178.4 uL (0.0-1933); URINE EPITHELIAL CELLS 2.4 uL (0.0-38.8); URINE RBC 34.1 uL (0.0-20.8); URINE WBC 2877.0 uL (0.0-23.2)
[2025-08-17 17:06] LABS: URINE CAST 1.27 uL (0.0-1.40)
[2025-08-17 17:09] LABS: ALT/SGPT 30.0 U/L (12-78); AST/SGOT 27.0 U/L (15-37); BILIRUBIN TOTAL 0.37 mg/dL (0.3-1.2); BUN CREA RATIO 15.0 (7.0-25.0); CREATININE SERUM 1.58 mg/dL (0.70-1.30); GFR 42.3; GLOBULINA 4.4 G/DL (2.4-3.5); GLUCOSE FASTING 112.0 mg/dL (65-100); OSMOLALITY SERUM 277.0 MOSM/KG (275-295)
== END 2025-08-17 18:25 | disposition home or self-care (01) ==
LOC: ER 12:02
PROVIDERS: General Practice
DX: N39.0 Urinary tract infection, site not specified (principal); I10 Essential (primary) hypertension
CPT/HCPCS: 36415; 96372; 99282; J0696